=== PATIENT | male | born 1995 | race Caucasian/White ===

== ENCOUNTER 2023-03-11 13:08 | Emergency (ER) | payer OTHER ==
[~2023-03-11] VITALS: Ht 172.7 cm; Wt 104.3 kg
[2023-03-11 13:10] VITALS: BP_SYST 138; PULSE 88; RESP 19; TEMP 98.7; O2SAT 99
[2023-03-11] MEDS ORDERED: DICL75TA5 PO (16:11)
[2023-03-11] MEDS ORDERED: KETOROLAC TROMETHAMINE 60 MG/2 ML VIAL IM ONE (16:15)
[2023-03-11 17:00] VITALS: BP_SYST 138; PULSE 88; RESP 19; TEMP 98.7; O2SAT 99
== END 2023-03-11 16:22 | disposition home or self-care (01) ==
LOC: SED 13:08
DX: G44.209 Tension-type headache, unspecified, not intractable (principal); R42 Dizziness and giddiness; Z79.899 Other long term (current) drug therapy
CPT/HCPCS: 99285; 70450; 76376; 96372; J1885

== ENCOUNTER 2023-04-27 14:37 | Emergency (ER) | payer OTHER ==
[~2023-04-27] VITALS: Ht 170.2 cm; Wt 97.5 kg
[~2023-04-27 14:37] MED LIST: DICL75TA5 PO
[2023-04-27 14:52] VITALS: BP_SYST 120; PULSE 69; RESP 16; TEMP 97.8; O2SAT 99
[2023-04-27] MEDS ORDERED: METH-634 PO (15:09)
[2023-04-27] MEDS ORDERED: TRAM50TA2 PO (15:09)
[2023-04-27 15:14] VITALS: BP_SYST 120; PULSE 69; RESP 16; TEMP 97.8; O2SAT 99
== END 2023-04-27 15:13 | disposition home or self-care (01) ==
LOC: SED 14:37
DX: R51.9 Headache, unspecified (principal); Z79.899 Other long term (current) drug therapy
CPT/HCPCS: 99283